=== PATIENT | male | born 1995 | race American Indian/Alaskan Native ===

== ENCOUNTER 2017-11-13 12:09 | Emergency (ER) | payer SELFPAY ==
[2017-11-13] MEDS ORDERED: ADRENALIN ONE (12:10)
[2017-11-13] MEDS ORDERED: BENADRYL IV ONE (12:14)
[2017-11-13] MEDS ORDERED: PEPCID IV ONE (12:14)
[2017-11-13] MEDS: ADRENALIN SUB-Q ONE ×2 (12:15)
--- NOTE | 2017-11-13 12:26 | Emergency Department Report ---
ED Allergic Reaction HPI - General Chief complaint: Allergic Reaction Stated complaint: HIVES Time Seen by Provider: 11/13/17 12:14 Source: patient, family Mode of arrival: Ambulatory Limitations: No Limitations - History of Present Illness Initial Comments: Mr Mendez is a 22 year-old man with allergy to bees who presents after bee sting. Stung on left arm and possibly R leg around 1145am. Brought into ED by private vehicle. Having trouble talking, diffuse itching, raised rash over entire body. No trouble breathing, no abdominal pain, no nausea, no vomiting. Does not have an epi-pen. No home meds. No other allergies. No other complaints. MD Complaint: allergic reaction -: Sudden Time: 11:45 Symptoms: rash, itching, facial swelling, hoarseness Severity: severe Treatment Prior to Arrival: none Previous Allergy History: anaphylaxis - Related Data Previous Rx's Medication Instructions Recorded Last Taken Type EPINEPHrine 0.3 mg IM ONCE PRN 1 Days ml 11/13/17 Unknown Rx Allergies Allergy/AdvReac Type Severity Reaction Status Date / Time bee venom protein (honey bee) Allergy Hives Verified 11/13/17 12:14 ED Review of Systems ROS: Stated complaint: HIVES Other details as noted in HPI Comment: All other systems reviewed and negative ED Past Medical Hx - Past Medical History Previous Medical History?: No - Surgical History Past Surgical History?: No - Social History Smoking Status: Current Every Day Smoker Substance Use Type: Alcohol, Marijuana - Medications Home Medications: Home Medications Medication Instructions Recorded Confirmed Last Taken Type EPINEPHrine 0.3 mg IM ONCE PRN 1 Days ml 11/13/17 Unknown Rx ED Physical Exam - General Limitations: No Limitations General appearance: alert, anxious - Head Head exam: Present: atraumatic, normocephalic - Eye Eye exam: Present: normal appearance, PERRL, EOMI - ENT ENT exam: Present: normal exam, mucous membranes moist, other (no oropharyngeal swelling. mild hoarseness) - Neck Neck exam: Present: normal inspection, full ROM, other (no stridor). Absent: tenderness, meningismus, lymphadenopathy, thyromegaly - Respiratory Respiratory exam: Present: normal lung sounds bilaterally. Absent: respiratory distress, wheezes, rales, rhonchi, stridor, chest wall tenderness, accessory muscle use, decreased breath sounds, prolonged expiratory - Cardiovascular Cardiovascular Exam: Present: normal rhythm, tachycardia, normal heart sounds - GI/Abdominal GI/Abdominal exam: Present: soft. Absent: distended, tenderness, guarding, rebound - Rectal Rectal exam: Present: deferred - Extremities Exam Extremities exam: Present: normal inspection, full ROM, normal capillary refill. Absent: pedal edema, joint swelling - Back Exam Back exam: Present: normal inspection. Absent: tenderness - Neurological Exam Neurological exam: Present: alert, oriented X3, normal gait - Psychiatric Psychiatric exam: Present: normal affect, normal mood - Skin Skin exam: Present: warm, dry, intact, erythema, urticaria ED Course Vital Signs 11/13/17 11/13/17 11/13/17 12:14 12:15 12:20 Temperature 97.7 F Pulse Rate 123 H 123 H Respiratory 22 22 Rate Blood Pressure 147/60 O2 Sat by Pulse 95 96 Oximetry 11/13/17 11/13/17 11/13/17 12:24 12:31 12:45 Temperature Pulse Rate 96 H 89 90 Respiratory 22 16 17 Rate Blood Pressure 118/68 118/68 O2 Sat by Pulse 96 98 96 Oximetry 11/13/17 11/13/17 11/13/17 13:01 13:15 13:31 Temperature Pulse Rate 87 88 91 H Respiratory 16 15 17 Rate Blood Pressure 118/68 118/68 99/59 O2 Sat by Pulse 100 96 96 Oximetry 11/13/17 11/13/17 11/13/17 13:45 14:01 14:15 Temperature Pulse Rate 91 H 88 87 Respiratory 18 16 15 Rate Blood Pressure 99/59 99/59 99/59 O2 Sat by Pulse 96 97 97 Oximetry - Reevaluation(s) Reevaluation #1: 11/13/17 13:00 Improving, no longer itching. remains with faint rash, no trouble breathing. Sleeping comfortably, easily awoken. HR 90, normotensive, on room air ED Medical Decision Making - Medical Decision Making Mr Mendez is a 22 year-old man who presents with itching, trouble talking after bee sting. Known allergy to bees. Does not have an epi-pen. No chest pain. No trouble breathing. No GI symptoms. On arrival with diffuse urticaria, no oropharyngeal swelling, no stridor, no wheezing. Giving 0.3mg IM epi, 125mg IV solumedrol, 20mg IV famotidine, 50mg IV benadryl. Already with improved phonation 10 minutes after administration. Observed for four hours without any recurrent symptoms. Rash entirely resolved. No shortness of breath. normal phonation. Given rx for epi-pen, care instructions and return precautions, including everytime he needs to use the epinephrine autoinjector. Normal VS Critical care attestation.: If time is entered above; I have spent that time in minutes in the direct care of this critically ill patient, excluding procedure time. ED Disposition Clinical Impression: Allergic reaction Qualifiers: Encounter type: initial encounter Qualified Code(s): T78.40XA - Allergy, unspecified, initial encounter Disposition: TO HOME OR SELFCARE Is pt being admited?: No Condition: Stable Instructions: Epinephrine (Injection), Anaphylaxis (ED) Prescriptions: EPINEPHrine 0.3 mg IM ONCE PRN 1 Days ml PRN Reason: Anaphylaxis Referrals: PRIMARY CARE, [Primary Care Provider] - 3-5 Days
[2017-11-13 16:31] VITALS: BP 124/78
== END 2017-11-13 16:31 | disposition home or self-care (01) ==
LOC: ED 12:09
DX: T78.40XA Allergy, unspecified, initial encounter (principal); F17.200 Nicotine dependence, unspecified, uncomplicated; F12.10 Cannabis abuse, uncomplicated; Z91.030 Bee allergy status
CPT/HCPCS: 96372; 96374; 96375; 99282; J0171; J1200; J2930

== ENCOUNTER 2017-12-24 09:36 | Emergency (ER) | payer OTHER ==
[2017-12-24] MEDS ORDERED: NORCO 5/325 PO ONE (10:10)
[2017-12-24] MEDS ORDERED: NORCO 5/325 ONE (10:12)
--- NOTE | 2017-12-24 11:38 | XRay Report ---
LEFT HAND, 3 views: History: Laceration left middle finger by lawnmower A complex soft tissue injury is identified in the distal tip of the third digit. Mildly comminuted tuft fracture is identified. A nondisplaced fracture is also identified at the a.c. the distal phalanx of the third digit. There appears to be amputation of the distal tip of the digit. The remaining bony structures and joint spaces are unremarkable. IMPRESSION: Fracture, distal phalanx, third digit. Complex soft tissue laceration.
--- NOTE | 2017-12-24 13:11 | Emergency Department Report ---
Upper Extremity - HPI Chief Complaint: Wound/Laceration Stated Complaint: FINGER INJURY Time Seen by Provider: 12/24/17 13:05 Upper Extremity: Left Middle Finger (left middle finger injury with pain and laceration) Occurred When: Today (9 AM) Mechanism: Crush (lawnmower) Severity: severe (10/10) Symptoms: Yes Pain with Movement (left middle finger), Yes Limited Range of Movement (left middle finger), Yes Swelling (left middle finger), Yes Bruising/ Ecchymosis (left middle finger), Yes Laceration or Abrasion (left middle finger) , No Deformity, No Numbness, No Weakness Other History: This is 22-year-old male here reports that he injured his left middle finger and cut by lawnmower. Tetanus shot is less than 2 years ago. He said he was using lawnmower and accidentally cut his left middle finger. Patient reports pain 10 out of 10 and throbbing and aching. He reports that part of his nail is gone on finger. Pain is worse with movement and touch. No alleviating factors. ED Review of Systems ROS: Stated complaint: FINGER INJURY Other details as noted in HPI Constitutional: denies: chills, fever Respiratory: denies: cough, shortness of breath, SOB with exertion, SOB at rest , stridor, wheezing Cardiovascular: denies: chest pain, palpitations Gastrointestinal: denies: nausea Musculoskeletal: joint swelling, arthralgia Skin: change in color, change in hair/nails, other (laceration to right middle finger) Neurological: numbness ED Past Medical Hx - Past Medical History Previous Medical History?: Yes Hx Asthma: Yes - Surgical History Past Surgical History?: No - Family History Family history: hypertension - Social History Smoking Status: Light Tobacco Smoker Substance Use Type: None, Marijuana - Medications Home Medications: Home Medications Medication Instructions Recorded Confirmed Last Taken Type EPINEPHrine 0.3 mg IM ONCE PRN 1 Days ml 11/13/17 Unknown Rx Upper Extremity Exam - Exam General: Vital signs noted. No distress. Alert and acting appropriately. This is a 22-year-old male well-nourished well-developed in no acute distress. Head and Torso: No HEENT Abnormality, No Neck Tenderness, No Chest/Lungs Abnormality, No Abdominal Tenderness, No Back Tenderness Shoulder Exam: Yes Normal Range of Motion in Shoulder, No Shoulder Tenderness, No Clavicle Tenderness, No Shoulder Deformity, No AC Joint Tenderness Arm Exam: No Arm/Humerus Tenderness, No Arm Deformity Elbow: Yes Normal Range of Motion in Elbow, No Elbow Tenderness, No Elbow Deformity Forearm: No Forearm Tenderness, No Forearm Deformity, No Pain with Pronation, No Pain with Supination Wrist: Yes Normal ROM in Wrist, No Wrist Tenderness, No Wrist Deformity, No Snuffbox Tenderness, No Pain with Axial Thumb Compression Hand: Yes Digit(s) Deformity (left middle finger) CMS Exam: Yes Broken Skin ( rt middle finger with laceration and distal tuft involving nail avulsion. Macerated. Bleed in), Yes Normal Distal Pulses (+2 radial and ulnar pulses), Yes Normal Capillary Refill (unable to differentiate capillary refill to left middle finger due to nail avulsion), Yes Normal Distal Sensation Hand L/R Back: 1 - Patient with macerated laceration to right middle finger distal tuft that is involved in nail avulsion, laceration is deep. Ecchymotic area surrounding injured site with swelling and tenderness palpated. Patient able to move his finger but reports large amount of pain with movement. This vaccine is less than 2 years. ED Course Vital Signs 12/24/17 12/24/17 10:17 10:22 Temperature 98.5 F Pulse Rate 98 H Respiratory 22 18 Rate Blood Pressure 127/90 O2 Sat by Pulse 100 Oximetry - Reevaluation(s) Reevaluation #1: 12/24/17 13:41 Patient presents to emergency room with left middle finger injury and laceration. He reports that he got one pain medicine triage area that did not help his pain. xr shows the patient on multiple fractures and he has multiple deep lacerations, macerated in. I spoke with [facility] ED doctor Geraldo Liz accepted patient for orthopedic hand specialist. Patient aware and awaiting transport. Reevaluation #2: 12/24/17 14:03 Patient was given Dilaudid 1 mg IM, then mom reported that she gave patient to offer on tramadol which is 50 mg each. I told her that She should not do that because this could interfere with the care of the patient she became very verbally abusive. Digital block done using bupivacaine. Zofran 4 mg ODT, Ancef 1 g IM. Left middle finger wound irrigated with 500 mL normal saline and Vaseline impregnated gauze dressing followed by bulky gauze dressing. No foreign body noted in finger. 12/24/17 14:04 Reevaluation #3: 12/24/17 15:00 See procedure notes for left metal finger splint - Nerve Block Consent Obtained: verbal consent Local Anesthetic Used: Marcaine 0.5% (bupivacaine 0.5%) Amount of anesthesia used: 3 Side: left Nerve Blocks: digital Procedure Successful: Yes Complications: none Patient Tolerated Procedure: well, no complications - Orthopedic Splinting/Casting Injury #1 Side: left Upper Extremity Injury Location: finger Upper Extremity Immobilizer: aluminum form splint ED Medical Decision Making - Radiology Data Radiology results: report reviewed Patient with x-ray of right hand dictated by radiologist and report reviewed per myself . See procedure for details Patient: MELANIA ALVAREZ MR#: [id number] : 1995 Acct:[id number] Age/Sex: 22 / M ADM Date: 12/24/17 Loc: ED Attending Dr: Ordering Physician: LILLY ROB MD Date of Service: 12/24/17 Procedure(s): XR hand 3+V LT Accession Number(s): [id number] cc: ED MD LIANE Fluoro Time In Minutes: LEFT HAND, 3 views: History: Laceration left middle finger by keith A complex soft tissue injury is identified in the distal tip of the third digit. Mildly comminuted tuft fracture is identified. A nondisplaced fracture is also identified at the a.c. the distal phalanx of the third digit. There appears to be amputation of the distal tip of the digit. The remaining bony structures and joint spaces are unremarkable. IMPRESSION: Fracture, distal phalanx, third digit. Complex soft tissue laceration. Transcribed By: TTR Dictated By: LARY SAAVEDRA JR, MD Electronically Authenticated By: LARY SAAVEDRA JR, MD Signed Date/Time: 12/24/17 1131 DD/ 1130 TD/TT: 12/24/17 1131 - Medical Decision Making This is a 22-year-old male patient came to the emergency room report that he had lawnmower injury at 9 AM this morning. His finger with laceration and pain 10 out of 10. He stated he evaluated Patient was seen and examined by myself and found to have complex laceration, irregular, macerated. Bleeding, x-ray of left hand shows fracture distal phalanx left middle finger with complex laceration. This is dictated by radiologist and reported to myself. Patient given acetaminophen 1 mg by mouth in triage which did not relieve this pain seems given Dilaudid 1 mg IM and Zofran 8 mg ODT. Digital block into the left middle finger and pain is now relieved. See procedure note for details on digital block. See procedure note for finger splint. Attending physician Dr. Wasserman evaluated the patient and was decided that patient needs to be seen by hand surgeon due to complexity of injury. X-ray report discussed with patient and family and also plans to chest with a gradient decreased. I spoke with Dr. Antunez at [place] or so hand surgery and patient will be transferred to [place] [facility] via ambulance. Vital signs afebrile and pain in his control. Patient discharged from ED in stable condition to be transferred to [place] Critical care attestation.: If time is entered above; I have spent that time in minutes in the direct care of this critically ill patient, excluding procedure time. ED Disposition Clinical Impression: Arthralgia of left hand Open fracture of finger of left hand Qualifiers: Encounter type: initial encounter Finger: middle finger Phalanx: distal Fracture alignment: displaced Qualified Code(s): S62.633B - Displaced fracture of distal phalanx of left middle finger, initial encounter for open fracture Laceration of finger of left hand with damage to nail Qualifiers: Encounter type: initial encounter Finger: middle finger Foreign body presence: without foreign body Qualified Code(s): S61.313A - Laceration without foreign body of left middle finger with damage to nail, initial encounter Disposition: DC/TX-70 ANOTHER TYPE HLTHCARE Is pt being admited?: No Condition: Stable Referrals: PRIMARY CARE, [Primary Care Provider] - 3-5 Days
[2017-12-24] MEDS ORDERED: NACL 0.9% IR ONE (13:17)
[2017-12-24] MEDS ORDERED: ZOFRAN ODT PO ONE (13:17)
[2017-12-24] MEDS ORDERED: DILAUDID IM ONE (13:17)
[2017-12-24] MEDS ORDERED: MARCAINE 0.5% INFILTRATI ONE (13:17)
[2017-12-24] MEDS ORDERED: ANCEF IM ONE (13:21)
[2017-12-24 15:00] VITALS: BP 120/82
== END 2017-12-24 15:20 | disposition other institution (70) ==
LOC: ED 09:36
DX: S62.633B Displaced fracture of distal phalanx of left middle finger, initial encounter for open fracture (principal); J45.909 Unspecified asthma, uncomplicated; F17.200 Nicotine dependence, unspecified, uncomplicated; F12.90 Cannabis use, unspecified, uncomplicated; Z79.899 Other long term (current) drug therapy; W31.9XXA Contact with unspecified machinery, initial encounter; Y93.89 Activity, other specified; Y99.8 Other external cause status; Y92.096 Garden or yard of other non-institutional residence as the place of occurrence of the external cause
CPT/HCPCS: 29130; 73130; 96372; 99285; J0690; J1170; Q0162

== ENCOUNTER 2019-01-23 09:26 | Emergency (ER) | payer SELFPAY ==
[2019-01-23 11:03] LABS: Hematocrit 44.6 % (35.5-45.6); Hemoglobin 14.8 gm/dl (11.8-15.2); Mean Corpuscular HGB Conc 33 % (32-34); Mean Corpuscular Volume 85 fl (84-94); Platelet Count 198 K/mm3 (140-440); Red Blood Count 5.23 M/mm3 (3.65-5.03); Red Cell Distribution Width 14.4 % (13.2-15.2)
[2019-01-23 11:11] LABS: Basophils # (Auto) 0.1 K/mm3 (0.0-0.1); Basophils % (Auto) 1.6 % (0.0-1.8); Eosinophils # (Auto) 0.1 K/mm3 (0.0-0.4); Eosinophils % (Auto) 3.5 % (0.0-4.3); Lymphocytes # (Auto) 1.6 K/mm3 (1.2-5.4); Lymphocytes % (Auto) 41.6 % (13.4-35.0); Monocytes # (Auto) 0.6 K/mm3 (0.0-0.8)
[2019-01-23 11:23] LABS: BUN/Creatinine Ratio 10; Blood Urea Nitrogen 10 mg/dL (9-20); Calcium 9.1 mg/dL (8.4-10.2); Hemolysis Index 111
--- NOTE | 2019-01-23 11:43 | XRay Report ---
CHEST 2 VIEWS INDICATION: Upper Respiratory Infection. Productive cough for 2 months. COMPARISON: None FINDINGS: Support devices: None. Heart: Within normal limits. Lungs/pleura: No acute air space or interstitial disease. No pneumothorax. Additional findings: None. IMPRESSION: No acute findings. Signer Name: Gregg Dinero Jr, MD Signed: 01/23/2019 11:39 AM Workstation Name: [id number]
[2019-01-23 12:28] LABS: Band Neutrophils # (Manual) 0.1 K/mm3; Basophils % (Manual) 0 % (0.0-1.8); Platelet Estimate Consistent w Auto; RBC Morphology Normal; Total Cells Counted 100
--- NOTE | 2019-01-23 12:30 | Emergency Department Report ---
HPI - General Time Seen by Provider: 01/23/19 11:49 - HPI HPI: 23-year-old -French male presents to the emergency department with 3 complaints. First, the patient has been having a 2 to three-day history of some burning with urination and wonders if he has a urinary tract infection. Secondly, the patient also has been having bilateral hamstring pain for the same 2-3 day period. He denies any new workout regimen or increased exertion. The pain worsens with straightening of the legs and sometimes when he is laying flat and he says that it is keeping him from getting sleep. He denies any swelling of the legs, skin color change. No recent travel or immobility. Lastly, the patient complains of a chronic productive cough with some greenish sputum. He has a past medical history of asthma. He has not taken anything for her symptoms prior to presentation. No primary care physician. ED Past Medical Hx - Past Medical History Previous Medical History?: Yes Hx Asthma: Yes - Surgical History Past Surgical History?: No - Social History Smoking Status: Current Some Day Smoker Substance Use Type: Alcohol, Marijuana - Medications Home Medications: Home Medications Medication Instructions Recorded Confirmed Last Taken Type EPINEPHrine 0.3 mg IM ONCE PRN 1 Days ml 11/13/17 Unknown Rx Cyclobenzaprine HCl [Flexeril 5 MG 5 mg PO TID PRN #12 tab 01/23/19 Unknown Rx TAB] ED Review of Systems ROS: Stated complaint: LEG/BODY/UTI/PAIN Other details as noted in HPI Comment: All other systems reviewed and negative Constitutional: denies: chills, fever Eyes: denies: eye pain, vision change ENT: denies: ear pain, throat pain Respiratory: cough. denies: shortness of breath Cardiovascular: denies: chest pain, palpitations Gastrointestinal: denies: abdominal pain, vomiting Genitourinary: dysuria. denies: discharge Musculoskeletal: myalgia. denies: back pain Skin: denies: rash, lesions Neurological: denies: weakness, numbness, paresthesias Physical Exam - Physical Exam Vital Signs: Vital Signs 01/23/19 10:08 Temperature 98.4 F Pulse Rate 76 Respiratory 20 Rate Blood Pressure 122/73 O2 Sat by Pulse 99 Oximetry Physical Exam: GENERAL: The patient is well-developed well-nourished. HENT: Normocephalic. Atraumatic. Patient has moist mucous membranes. EYES: Extraocular motions are intact. NECK: Supple. Trachea is midline. CHEST/LUNGS: Clear to auscultation. No cough heard during examination. There is no respiratory distress noted. HEART/CARDIOVASCULAR: Regular. There is no tachycardia. There is no murmur. ABDOMEN: Abdomen is soft, nontender. Patient has normal bowel sounds. There is no abdominal distention. SKIN: Skin is warm and dry. NEURO: The patient is awake, alert, and oriented. The patient is cooperative. The patient has no focal neurologic deficits. Normal speech. MUSCULOSKELETAL: There is no tenderness to palpation, but I am able to reproduce his hamstring pain with leg extensions. There is no limitation range of motion. There is no evidence of acute injury. ED Course Vital Signs 01/23/19 10:08 Temperature 98.4 F Pulse Rate 76 Respiratory 20 Rate Blood Pressure 122/73 O2 Sat by Pulse 99 Oximetry ED Medical Decision Making - Lab Data Result diagrams: 01/23/19 10:48 01/23/19 10:48 - Medical Decision Making Patient presents to the emergency department with 3 complaints. Regarding his burning with urination, the urinalysis does not show any significant urinary tract infection. He denies any penile discharge, penile pain, rash, lesions. It is possible it could be urethritis but it is not obvious at this time and the patient can follow up outpatient for this. The rest of his labs were unremarkable as well including CBC and metabolic panel. Regarding his hamstring pain, it appears to just be musculoskeletal. It is possible he has some atypical sciatica as the pain worsens with leg extension but the pain is mostly to the hamstrings and does not go into the buttock or lower back despite a positive straight leg raise test. He'll be placed on some ibuprofen and Flexeril. He has been given a referral for an orthopedist. Regarding his chronic cough, I did not hear any significant cough and he did not have any signs of any respiratory distress while in the emergency department. Chest x- ray did not show any pneumonia, pleural effusions, pneumothorax, focal consolidation, or any other acute process. This could be some chronic bronchitis. Vital signs stable throughout his ED course. - Differential Diagnosis sciatica, muscle spasm, UTI, urethritis, bronchitis Critical Care Time: No Critical care attestation.: If time is entered above; I have spent that time in minutes in the direct care of this critically ill patient, excluding procedure time. ED Disposition Clinical Impression: Bronchitis, Dysuria Leg pain, posterior Qualifiers: Laterality: unspecified laterality Qualified Code(s): M79.606 - Pain in leg, unspecified Disposition: TO HOME OR SELFCARE Is pt being admited?: No Condition: Stable Instructions: Chronic Bronchitis (ED), Dysuria (ED), Arthralgia (ED) Additional Instructions: Please follow-up with a primary care physician in the next few days. Return to the emergency Department with any worsening of your symptoms or any acute distress. I am giving you a referral for a local orthopedist, Dr. Miner, to follow up regarding your leg/hamstring pain. You have been prescribed a medication that is sedating and therefore should not be taken prior to driving, working, and responsible for children and in no way should be mixed with alcohol of any quantity. Prescriptions: Cyclobenzaprine HCl [Flexeril 5 MG TAB] 5 mg PO TID PRN #12 tab PRN Reason: Muscle Spasm Referrals: VERONIQUE MINER MD [Staff Physician] - 3-5 Days [facility] [Outside] - 3-5 Days Time of Disposition: 13:57
[2019-01-23 13:21] LABS: Bilirubin,Urine NEG (Negative); Blood,Urine NEG (Negative); Color,Urine Straw (Yellow); Protein,Urine <15 mg/dL mg/dL (Negative); Urobilinogen,Urine < 2.0 mg/dL (<2.0)
[2019-01-23 14:18] VITALS: BP 117/88
== END 2019-01-23 14:19 | disposition home or self-care (01) ==
LOC: ED 09:26
DX: J45.909 Unspecified asthma, uncomplicated (principal); N39.0 Urinary tract infection, site not specified; F17.200 Nicotine dependence, unspecified, uncomplicated; F12.10 Cannabis abuse, uncomplicated; Z79.899 Other long term (current) drug therapy; Z91.030 Bee allergy status
CPT/HCPCS: 36415; 71046; 80048; 81001; 85007; 85025; 99283